=== PATIENT | male | born 1965 | race Caucasian/White ===

== ENCOUNTER 2019-11-02 11:54 | Observation (INO) | payer BC ==
[~2019-11-02] VITALS: Ht 190.5 cm; Wt 113.0 kg
[2019-11-02 12:17] LABS: BASOPHILS % (AUTO) 0.4 % (0-1); EOSINOPHILS # (AUTO) 0.1 X10'3 (0-0.9); EOSINOPHILS % (AUTO) 2.4 % (0-6); HEMATOCRIT 46.7 % (42.0-52.0); LYMPHOCYTES # (AUTO) 1.5 X10'3 (1.1-4.8); LYMPHOCYTES % (AUTO) 28.8 % (21-51); MEAN CORPUSCULAR HGB CONC 34.4 g/dL (33.0-36.5); MEAN CORPUSCULAR VOLUME 101.7 FL (78-98); MEAN PLATELET VOLUME 7.9 FL (7.4-10.4); MONOCYTES # (AUTO) 0.6 X10'3 (0-0.9); MONOCYTES % (AUTO) 11.3 % (2-12); NEUTROPHILS % (AUTO) 57.1 % (42-75); PLATELET COUNT 134 X10'3 (140-440); RED BLOOD COUNT 4.59 X10'6 (4.70-6.10); RED CELL DISTRIBUTION WIDTH 13.4 % (11.5-14.5); WHITE BLOOD COUNT 5.3 X10'3 (4.5-11.0)
[2019-11-02] MEDS ORDERED: aspirin 325mg tablet PO ONE (12:25)
[2019-11-02 12:32] LABS: ALANINE AMINOTRANSFERASE 68 U/L (12-78); ALBUMIN 4.2 G/DL (3.4-5.0); ALBUMIN/GLOBULIN RATIO 1.1 (1.1-1.5); ALKALINE PHOSPHATASE 88 IU/L (46-116); ANION GAP 6 (8-16); ASPARTATE AMINO TRANSFERASE 61 U/L (10-37); BILIRUBIN,TOTAL 0.7 MG/DL (0.1-1.0); BLOOD UREA NITROGEN 15 MG/DL (7-18); CALCIUM 9.3 MG/DL (8.5-10.1); CHLORIDE 103 MMOL/L (99-107); CREATININE 0.94 MG/DL (0.60-1.10); GLUCOSE 95 MG/DL (70-104); POTASSIUM 3.9 MMOL/L (3.5-5.1); SODIUM 139 MMOL/L (135-145); TOTAL CARBON DIOXIDE 29.6 MMOL/L (24-32); eGFR 83 ML/MIN
[2019-11-02] MEDS ORDERED: ASPI-1265 PO (14:16)
[2019-11-02] MEDS ORDERED: CALC625T31 PO (14:16)
[2019-11-02] MEDS ORDERED: PANT40TA4 PO (14:16)
[2019-11-02] MEDS ORDERED: acetaminophen 325mg tablet PO PRN (14:20)
[2019-11-02] MEDS ORDERED: magnesium hydroxide 30ml (MOM) UD suspension PO PRN (14:20)
[2019-11-02] MEDS ORDERED: morphine 2 MG/ML inj. syringe IV PRN ×2 (14:20)
[2019-11-02] MEDS ORDERED: ondansetron/PF 4mg/2ml inj IV PRN (14:20)
[2019-11-02] MEDS ORDERED: mag hydrox/Alum hydrox/simeth 30ml oral suspension PO PRN (14:20)
[2019-11-02] MEDS: normal saline 1000ml 1,000 ML IV SCH ×2 (15:03→16:43)
[2019-11-02] MEDS ORDERED: metoprolol tartrate 1mg/ml inj IV PRN (15:20)
[2019-11-02] MEDS ORDERED: nitroGLYCERIN 0.4mg SUBLingual tab SL PRN ×2 (15:20)
[2019-11-02] MEDS ORDERED: regadenoson 0.4mg/5ml syringe IV ONE (15:20)
[2019-11-02] MEDS ORDERED: aminophylline 250mg/10ml inj. IV PRN (15:20)
--- NOTE | 2019-11-02 15:25 | NUR ---
Patient in room ED 7. I have received report from SUNG Gibbons and had the opportunity to ask questions and get room 3023B ready for his arrival.
--- NOTE | 2019-11-02 15:30 | NUR ---
Patient arrived from ED via wheelchair. Ambulated self to bed with standby assistance. Oriented to room, call light within reach. 2 RN skin check complete. First set of vitals Temp 98.5 F oral, BP 141/89 L arm, HR 74, R 16, pain 0/10.
[2019-11-02] MEDS: pantoprazole 40mg Tablet.DR PO SCH (15:58)
[2019-11-02 16:18] VITALS: BP 141/89
[2019-11-02 18:00] VITALS: BP 142/84
--- NOTE | 2019-11-02 18:12 | NUR ---
Problems reprioritized. Patient report given, questions answered & plan of care reviewed with SUNG Allen. Explained patient is here for chest pain observation, will have a Jacklyn tomorrow, is to be NPO at midnight and no caffeine now. All patient needs met at this time.
[2019-11-02] MEDS ORDERED: regadenoson 0.4mg/5ml syringe IV PRN (18:50)
--- NOTE | 2019-11-02 18:52 | NUR ---
Patient in room PCU 3013. I have received report from Yadira ALMARAZ and had the opportunity to ask questions and assume patient care.
[2019-11-02] MEDS: heparin, porcine 5000 units/ml vial SQ SCH (19:06)
[2019-11-02 22:00] VITALS: BP 133/84
[2019-11-03] VITALS (8 sets, daily range): BP systolic 117–141; BP diastolic 70–87
[2019-11-03 06:06] LABS: BASOPHILS % (AUTO) 0.3 % (0-1); EOSINOPHILS # (AUTO) 0.1 X10'3 (0-0.9); EOSINOPHILS % (AUTO) 2.6 % (0-6); HEMATOCRIT 42.1 % (42.0-52.0); HEMOGLOBIN 14.6 g/dl (14.0-17.9); LYMPHOCYTES # (AUTO) 1.5 X10'3 (1.1-4.8); LYMPHOCYTES % (AUTO) 31.1 % (21-51); MEAN CORPUSCULAR HEMOGLOBIN 35.6 PG (27.0-31.0); MEAN CORPUSCULAR HGB CONC 34.7 g/dL (33.0-36.5); MEAN CORPUSCULAR VOLUME 102.7 FL (78-98); MEAN PLATELET VOLUME 8.4 FL (7.4-10.4); MONOCYTES # (AUTO) 0.6 X10'3 (0-0.9); MONOCYTES % (AUTO) 11.8 % (2-12); NEUTROPHILS # (AUTO) 2.6 X10'3 (1.8-7.7); NEUTROPHILS % (AUTO) 54.2 % (42-75); PLATELET COUNT 109 X10'3 (140-440); RED CELL DISTRIBUTION WIDTH 13.4 % (11.5-14.5); WHITE BLOOD COUNT 4.9 X10'3 (4.5-11.0)
--- NOTE | 2019-11-03 06:07 | NUR ---
Problems reprioritized. Patient report given, questions answered & plan of care reviewed with Yadira ALMARAZ.
[2019-11-03 06:32] LABS: ALBUMIN 3.4 G/DL (3.4-5.0); ANION GAP 8 (8-16); BLOOD UREA NITROGEN 15 MG/DL (7-18); CALCIUM 8.3 MG/DL (8.5-10.1); CHLORIDE 105 MMOL/L (99-107); CREATININE 0.94 MG/DL (0.60-1.10); GLUCOSE 92 MG/DL (70-104); POTASSIUM 4.2 MMOL/L (3.5-5.1); SODIUM 141 MMOL/L (135-145); TOTAL CARBON DIOXIDE 28.2 MMOL/L (24-32); eGFR 83 ML/MIN
--- NOTE | 2019-11-03 06:33 | NUR ---
Patient in room PCU 3013. I have received report from SUNG Allen and had the opportunity to ask questions and assume patient care. patient currently resting in bed, bed locked and low, call light in reach, no acute distress, will continue to monitor.
[2019-11-03] MEDS: heparin, porcine 5000 units/ml vial SQ SCH (07:41)
[2019-11-03] MEDS: pantoprazole 40mg Tablet.DR PO SCH (07:41)
[2019-11-03] MEDS ORDERED: aspirin 81mg tablet.DR PO SCH (08:00)
[2019-11-03] MEDS: normal saline 1000ml 1,000 ML IV SCH (10:36)
--- NOTE | 2019-11-03 14:06 | NUR ---
Received orders for patient to discharge to home. IV removed, catheter tip intact, hemostasis achieved, telemetry removed, wrist band removed. Follow up appointment made with Dr. Nassar's office. Patient educated on chest pain and when to return to hospital if necessary, educated on medication regiment and discontinuation of aspirin per Dr. Fernando. Patient verbalized understanding of teaching. Patient was able to ambulate self to the lobby to wait for his who he said was "5 minutes away". Stable at time of discharge.
== END 2019-11-03 13:59 | disposition home or self-care (01) ==
LOC: ER 11:55 → ED HOLD 14:18 → PCU 3S 15:30
PROVIDERS: ADMIT Family Medicine; ATTEND Family Medicine
DX: R07.89 Other chest pain (principal); K21.9 Gastro-esophageal reflux disease without esophagitis
CPT/HCPCS: 36415; 71045; 78452; 80048; 80053; 84484; 85025; 87081; 93005; 93017; 96372; 99285; A9500; G0378; J1644; J2785; J7030